=== PATIENT | female | born 1965 | race Caucasian/White ===

== ENCOUNTER → 2018-10-15 16:07 | Outpatient (CLI) | payer BC, SELFPAY ==
--- NOTE | 2018-10-15 16:11 | BI_ITS ---
MAMMOGRAPHY - BILATERAL SCREENING REASON FOR EXAM: Female, 53 years old. Routine annual screening examination. PERTINENT HISTORY: Grandmother with breast cancer. TECHNIQUE: Digital bilateral breast myke (3D mammographic acquisition) in the CC and MLO projections. 2-D mediolateral oblique (MLO) and craniocaudad (CC) views of both breasts were obtained. CAD: Full Field Digital Mammography with Computer Added Detection was performed. COMPARISON: Comparison is made with prior study dated October 01, 2017 and August 25, 2016. FINDINGS: Breast Composition: The breasts are heterogeneously dense, which may obscure small masses. There are no dominant masses or suspicious calcifications. Stable benign-appearing bilateral axillary lymph nodes. No other significant abnormalities are identified. There has been no significant change since the prior study. BI/SCREENING MAMM (CAD), BILAT IMPRESSION: Stable bilateral screening mammogram. Yearly follow-up mammogram recommended. (A) ASSESSMENT CATEGORY: BIRADS Category 2: Benign. A letter regarding these results will be sent to the patient by the facility within 30 days. Approximately 10% of breast cancers are not detected by mammography. A normal mammogram should not delay biopsy of a clinically suspicious abnormality. [id number] Electronically Signed: Pavan Gonzales MD at 12:45 EST Tel [phone], Service support ,
== END ==
PROVIDERS: Family Provider Family Medicine; PCP Family Medicine; Referring Provider Obstetrics & Gynecology; Visit Provider Obstetrics & Gynecology
DX: Z12.31 Encounter for screening mammogram for malignant neoplasm of breast (principal)
CPT/HCPCS: 77063; 77067

== ENCOUNTER → 2019-10-13 13:43 | Outpatient (CLI) | payer BC, SELFPAY ==
[2019-10-19 10:02] LABS: HPV Reflexed? NOT INDICATED
== END ==
PROVIDERS: Visit Provider Obstetrics & Gynecology
DX: Z12.4 Encounter for screening for malignant neoplasm of cervix (principal)
CPT/HCPCS: 88175; G0145

== ENCOUNTER → 2019-10-22 13:09 | Outpatient (CLI) | payer BC, SELFPAY ==
--- NOTE | 2019-10-22 13:17 | BI_ITS ---
MAMMOGRAPHY - BILATERAL SCREENING REASON FOR EXAM: Female, 54 years old. Routine annual screening examination. PERTINENT HISTORY: Grandmother with breast cancer. TECHNIQUE: Digital bilateral breast bre (3D mammographic acquisition) in the CC and MLO projections. 2-D mediolateral oblique (MLO) and craniocaudad (CC) views of both breasts were obtained. CAD: Full Field Digital Mammography with Computer Added Detection was performed. COMPARISON: Comparison is made with prior study dated October 15, 2018 and October 01, 2017. FINDINGS: Breast Composition: The breasts are heterogeneously dense, which may obscure small masses. There are no dominant masses or suspicious calcifications. Stable bilateral benign appearing axillary lymph nodes. No other significant abnormalities are identified. There has been no significant change since the prior study. BI/SCREEN MAMM (CAD) W/BRE BILAT IMPRESSION: Stable bilateral screening mammogram. Yearly follow-up mammogram recommended. (A) ASSESSMENT CATEGORY: BIRADS Category 2: Benign. A letter regarding these results will be sent to the patient by the facility within 30 days. Approximately 10% of breast cancers are not detected by mammography. A normal mammogram should not delay biopsy of a clinically suspicious abnormality. [id number] Electronically Signed: Pavan Gonzales, at 15:20 EST , Service support ,
== END ==
PROVIDERS: Family Provider Student in an Organized Health Care Education/Training Program; PCP Student in an Organized Health Care Education/Training Program; Referring Provider Obstetrics & Gynecology; Visit Provider Obstetrics & Gynecology
DX: Z12.31 Encounter for screening mammogram for malignant neoplasm of breast (principal)
CPT/HCPCS: 77063; 77067

== ENCOUNTER → 2020-11-07 12:15 | Outpatient (CLI) | payer OTHER, SELFPAY ==
--- NOTE | 2020-11-07 12:18 | BI_ITS ---
MAMMOGRAPHY - BILATERAL SCREENING REASON FOR EXAM: Female, 55 years old. Routine annual screening examination. PERTINENT HISTORY: Grandmother with breast cancer. TECHNIQUE: Digital bilateral breast bre (3D mammographic acquisition) in the CC and MLO projections. 2-D mediolateral oblique (MLO) and craniocaudad (CC) views of both breasts were obtained. CAD: Full Field Digital Mammography with Computer Added Detection was performed. COMPARISON: Comparison is made with prior study dated 04/21/2020 and 10/15/2018. FINDINGS: Breast Composition: The breasts are heterogeneously dense, which may obscure small masses. There are no dominant masses or suspicious calcifications. Stable benign-appearing bilateral axillary lymph nodes. No other significant abnormalities are identified. There has been no significant change since the prior study. BI/SCRN MAMM (CAD)W/BRE BILAT IMPRESSION: Stable bilateral screening mammogram. Yearly follow-up mammogram recommended. (A) ASSESSMENT CATEGORY: BIRADS Category 2: Benign. A letter regarding these results will be sent to the patient by the facility within 30 days. Approximately 10% of breast cancers are not detected by mammography. A normal mammogram should not delay biopsy of a clinically suspicious abnormality. [id number] Electronically Signed: Pavan Gonzales MD at 13:02 EST , Service support ,
== END ==
PROVIDERS: PCP Student in an Organized Health Care Education/Training Program; Referring Provider Obstetrics & Gynecology; Visit Provider Obstetrics & Gynecology
DX: Z12.31 Encounter for screening mammogram for malignant neoplasm of breast (principal)
CPT/HCPCS: 77063; 77067

== ENCOUNTER 2021-11-15 13:19 | Outpatient (CLI) | payer OTHER, SELFPAY ==
--- NOTE | 2021-11-15 13:25 | BI_ITS ---
MAMMOGRAPHY - BILATERAL SCREENING REASON FOR EXAM: Female, 56 years old. Routine annual screening examination. PERTINENT HISTORY: Grandmother with breast cancer. TECHNIQUE: Digital bilateral breast bre (3D mammographic acquisition) in the CC and MLO projections. 2-D mediolateral oblique (MLO) and craniocaudad (CC) views of both breasts were obtained. CAD: Full Field Digital Mammography with Computer Added Detection was performed. COMPARISON: Comparison is made with prior study dated 06/07/2021 and 10/22/2019. FINDINGS: Breast Composition: The breasts are heterogeneously dense, which may obscure small masses. Stable amorphous calcifications within a small nodular density in the retroareolar region of the right breast. The patient should be recalled for magnification spot views. This most likely represent a calcifying fibroadenoma. Stable small benign-appearing bilateral axillary lymph nodes. No other significant abnormalities are identified. BI/SCRN MAMM (CAD)W/BRE BILAT IMPRESSION: Stable amorphous calcifications in the retroareolar region of the right breast as described. The patient will be recalled for additional views including magnification spot views. Recall Side: Right Breast ASSESSMENT CATEGORY: BIRADS Category 0: Incomplete. Need additional imaging evaluation. A letter regarding these results will be sent to the patient by the facility within 30 days. Approximately 10% of breast cancers are not detected by mammography. A normal mammogram should not delay biopsy of a clinically suspicious abnormality. [id number] Electronically Signed: Pavan Gonzales MD at 8:16 EST ,
== END 2021-11-15 23:59 | disposition home or self-care (01) ==
PROVIDERS: PCP Student in an Organized Health Care Education/Training Program; Referring Provider Obstetrics & Gynecology; Visit Provider Obstetrics & Gynecology
DX: Z12.31 Encounter for screening mammogram for malignant neoplasm of breast (principal)
CPT/HCPCS: 77063; 77067

== ENCOUNTER 2021-11-19 14:18 | Outpatient (CLI) | payer OTHER, SELFPAY ==
--- NOTE | 2021-11-19 14:30 | BI_ITS ---
MAMMOGRAPHY - UNILATERAL DIAGNOSTIC: RIGHT BREAST REASON FOR EXAM: Female, 56 years old. Abnormal screening mammogram. PERTINENT HISTORY: Grandmother with breast cancer. TECHNIQUE: Compression magnification images of the right breast in the mediolateral oblique and craniocaudad projections were obtained. CAD: Full Field Digital Mammography with Computer Added Detection was performed. COMPARISON: Comparison is made with prior study dated 11/15/2021. FINDINGS: Breast Composition: The breasts are heterogeneously dense, which may obscure small masses. The microcalcifications in the retroareolar region of the right breast were examined. Biopsy is recommended. No other significant abnormalities are identified. BI/DIAG MAMM W/CAD, UNILAT IMPRESSION: The microcalcifications in the retroareolar region of the right breast were examined. Biopsy is recommended. ASSESSMENT CATEGORY: BIRADS Category 4: Suspicious - Biopsy Should Be Considered. A letter regarding these results will be sent to the patient by the facility within 30 days. Approximately 10% of breast cancers are not detected by mammography. A normal mammogram should not delay biopsy of a clinically suspicious abnormality. Electronically Signed: Pavan Gonzales MD at 15:08 [facility] ,
== END 2021-11-19 23:59 | disposition home or self-care (01) ==
LOC: OPBI 14:27
PROVIDERS: PCP Student in an Organized Health Care Education/Training Program; Referring Provider Obstetrics & Gynecology; Visit Provider Obstetrics & Gynecology
DX: R92.0 Mammographic microcalcification found on diagnostic imaging of breast (principal)
CPT/HCPCS: 77065

== ENCOUNTER 2021-11-28 10:28 | Outpatient (CLI) | payer OTHER, SELFPAY ==
--- NOTE | 2021-11-28 | IMM_PTH ---
PATIENT: CHANCE DASILVA LOC: [facility] U#:[id number] AGE/SX: 56/F ROOM: RE11/28/[address]: Dr. Ayden Manzanares MD : 1965 BED: DIS: 11/28/2021 SPEC #: [id number] RECD: 11/29/21 13:27 STATUS: MARCELA REQ #: [id number] DAVE: 11/28/21 00:[address]: Ayden Manzanares DEPT: IMMUNOHISTOCHEMISTRY RECD BY: Hannah Mckeon ENTERED: 11/29/21 13:28 SP TYPE: IMMUNO OTHR DR: Dr. Zuhair Tapia DO Tissues: Right breast, NOS Procedures: Calponin-1(initial) CK8 (add) E-CAD (add) P40 (add) PHYSICIAN & INSTITUTION [place] [address] SPECIMEN INFORMATION: Tissue Source: Right breast Clinical Info: Right breast retroareolar microcalcifications Specimen Number: [id number] #1 CPT code: 79922, 68091 x3 METHODOLOGY: Deparaffinized sections of prefer/formalin-fixed tissue or PAP/DQ stained slides are incubated with monoclonal/polyclonal antibodies/oligonucleotide probes. Localization is made via biotin free immunoperoxidase method. Appropriate controls are performed and reacted as expected. Results on target cell population are indicated in the following table: RESULTS: ANTIBODY / CLONE RESULT Block 1 P40 (BC28) positive Calponin-1 (FC918K) positive E-Cad (ECH-6) negative CK8 ([id number]) positive These tests were developed and their performance characteristics determined by [facility]. They may not have been cleared or approved by the U.S. Food and Drug Administration. The FDA has determined that such clearance or approval is not necessary. The above immunohistochemical/dualISH markers are ordered and reviewed by the Pathologist. INTERPRETATION: Right breast, stereotactic core biopsy: Consistent with focal atypical lobular hyperplasia. AM:antonio 11/30/2021
--- NOTE | 2021-11-28 10:57 | HP.PCM_ITS ---
History and Physical Date of Admission: 11/28/21 Intake Visit Reasons: BIRADS 4 RIGHT BREAST Chief Complaint: BIRADS 4 Right Beast Retoucher Required: No Is patient in pain?: No Allergies No Known Allergies Allergy (Verified 11/23/21 08:40) Medications ascorbate calcium (vitamin C) 500 mg tablet 500 mg PO DAILY 11/23/21 [History Co nfirmed 11/23/21] atorvastatin 10 mg tablet 10 mg PO DAILY 11/23/21 [History Confirmed 11/23/21] calcium carbonate 500 mg calcium (1,250 mg) tablet 500 mg PO DAILY 11/23/21 [History Confirmed 11/23/21] estradiol 1 mg tablet 1 mg PO DAILY 11/23/21 [History Confirmed 11/23/21] multivitamin 1 tab PO DAILY 11/23/21 [History Confirmed 11/23/21] omega-3 fatty acids 1,000 mg capsule 1,000 mg PO DAILY 11/23/21 [History Confirmed 11/23/21] progesterone micronized 200 mg capsule 200 mg PO QHS 11/23/21 [History Confirmed 11/23/21] [facility] Medical History (Updated 11/23/21 @ 08:[address] Ayden Manzanares MD) Anxiety Depression Hypertension Surgical History (Updated 11/23/21 @ 08:35 by Friday) History of delivery History of D&C Family History (Updated 11/23/21 @ 08:37 by Friday) Grandmother Breast cancer Pt is adopted and does not know a lot of her family history. Maternal grandmother had bilateral breast CA with bilateral mastectomy at age 34 Father Heart disease Hypertension Myocardial infarction Father at a young age from CA Social History (Updated 11/23/21 @ 08:38 by Friday) adopted: Yes Smoking Status: Never smoker alcohol intake: current substance use type: does not use HPI HPI HPI: CHANCE DASILVA, is a 56 F who presents to the office today for surgical consultation regarding an abnormal mammogram. The patient is referred by Dr. Zuhair Tapia and Dr. Lenin Mclaughlin and copies of my surgical consult will be returned to them. On November 15, 2021 the patient had routine screening mammography. The patient was felt to have stable amorphous calcifications in the retroareolar area of the right breast. BI-RADS Category 0. Diagnostic right unilateral mammograms were obtained on November 19, 2021. The microcalcifications in the retroareolar region of the right breast were examined. Biopsy is recommended BI-RADS Category 4. 56-year-old female. A0. Menarche at age 10. First child born she was 26. No previous breast biopsies. She has been on estrogen replacement therapy for the past 3 years. She is adopted so she does not know her perfect past medical history. May 2021 she experienced Covid-19. She did not require hospitalization. She did not require monoclonal antibody. She is not been vaccinated and currently is not interested in doing so. ROS General General: Yes fatigue; No weight change, appetite, colon cancer, breast cancer or weakness HEENT HEENT: No difficulty swallowing, eye injury, eye surgery, swollen glands or hoarseness Endo Endocrine: No thyroid disease, diabetes mellitus, thyroid cancer, Hair loss, heat intolerance or cold intolerance Skin Skin: No rash or changing moles Musc Musculoskeletal: Yes back problems; No arthritis, rheumatoid arthritis, gout or joint pain Cardio Cardiovascular: Yes high blood pressure; No murmur, pacemaker, heart disease, atrial fibrillation, heart attack, heart stent, palpitations, shortness of breat with exertion or chest pain Psych Psychiatric: Yes depression and anxiety; No hearing voices Resp Respiratory: No shortness of breath, No sleep apnea, No cough, No COPD, No asthma, No emphysema and No wheezing Gastro Gastrointestinal: No abdominal pain, No nausea or vomiting, No diarrhea, No constipation, No blood in stool, No acid reflux, No hemorrhoids, No ulcers, No gallbladder problem and No black,tarry stools Pierre Hematologic: No blood thinners, No blood disorders, No bleeding, No anemia and No blood clots Neuro Neurologic: No system reviewed and no additional complaints, except as documented, No as per HPI, No abnormal gait, No abnormal hearing, No abnormal movements, No abnormal speech, No behavioral changes, No burning sensations, No confusion, No convulsions, No disequilibrium, No dizziness, No localized weakness, No frequent falls, No headache(s), No lack of coordination, No loss of vision, No memory loss, No numbness, No other visual disturbances, No radicular pain, No restless legs, No sensory deficit, No syncope, No tingling, No tremor(s), No weakness and No other Exam Chest Other: Right breast: No focal mass. No nipple discharge. No axillary clavicular adenopathy Left breast: No focal mass, no nipple discharge. No axillary or clavicular adenopathy Assessment and Plan Assessment and Plan (1) Abnormal mammogram of right breast: Status: Acute Plan - Dr. Ayden Manzanares MD: I have personally reviewed the patient's mammogram and the BI-RADS Category 4 report. The calcifications appear to be rather coarse. Not clear that they have significantly changed from previously. I recommend to her stereotactic needle core biopsy. I discussed the technique, benefit, risk and alternatives. She is aware that a marking clip will be placed. She has had an opportunity to ask no questions answered. We will schedule and expedite her care. I appreciate the opportunity of assisting with her surgical management. Copy: Dr. Lenin Manzanares M.D., F.A.C.S. I have re-examined the patient. There are no clinical changes since date of exam.
--- NOTE | 2021-11-28 11:00 | BRBX_PTH ---
PATIENT: CHANCE DASILVA LOC: [facility] U#:[id number] AGE/SX: 56/F ROOM: RE11/28/[address]: Dr. Ayden Manzanares MD : 1965 BED: DIS: 11/28/2021 SPEC #: [id number] RECD: 11/28/21 11:41 STATUS: MARCELA REDa #: [id number] DAVE: 11/28/21 11:[address]: Ayden Manzanares DEPT: SURGICAL PATHOLOGY RECD BY: Kendal Sue ENTERED: 11/28/21 12:31 SP TYPE: BREAST BX OTHR DR: Dr. Zuhair Tapia DO Tissues: Right breast, NOS Procedures: Surgery Specimen Level IV HEADER OPERATION: Right breast stereotactic biopsy PRE-OP DIAGNOSIS: Right breast retroareolar microcalcifications TISSUE SUBMITTED: Right breast core tissue ISCHEMIC TIME: 1 minute FIXATION TIME: 8.5 hours MICROSCOPIC DIAGNOSIS Right breast, needle core biopsy: Fibrocystic change with associated microcalcifications. Focal atypical lobular hyperplasia. Focal intraductal hyperplasia without atypia. See comment. AM:antonio 11/29/2021 COMMENT Immunohistochemistry ([id number]) supports the above diagnosis. MICROSCOPIC DESCRIPTION Slides are reviewed. GROSS DESCRIPTION Received in fixative is one container labeled with the patient's name and designated right breast. The specimen consists of multiple irregular fragments of mckay-yellow soft tissue that in aggregate measure 4 x 3 x 0.2 cm. The specimen is totally submitted in two cassettes. / AM:antonio 11/28/2021 TC:3 CPT: 33889
--- NOTE | 2021-11-28 11:31 | PCM.OPRPT ---
Problems Associated Problem List Diagnoses (1) Abnormal mammogram of right breast: Report of Operation Date of Procedure: 11/28/21 Pre-Operative Diagnosis: Clustered microcalcifications outer mid right breast Post-Operative Diagnosis: Same Surgery/Procedure Performed:: Stereotactic needle core biopsy outer mid right breast Description of Surgical Findings:: Timeout informed consent was obtained. 56-year-old female states they are Sterital unit placed prone the table. The right breast was placed in a lateral medial view. The microcalcifications were rapidly identified. Stereotactic images were obtained. Digital information was obtained on a single target site. 1% lidocaine was used as a local anesthetic. A total of 16 cc was used. A small stab incision was created. An 8 gauge resolved needle was advanced to prefire depth. Prefire films were obtained demonstrating adequate localization. The device was fired. 6 cores were obtained. Specimen mammograms were obtained suggesting that the microcalcifications in question were scattered throughout the specimen. A dumbbell marking clip was left at 12 o'clock position. She was released from the device. Pressure was held for hemostasis. Steri-Strips Telfa tape dressing applied. She was given activity and wound care instructions. The specimens were immediately transferred to formalin for analysis. Final pathology pending. Clinically the area appeared to be consistent with a degenerating fibroadenoma. Specimen core samples. Drains none. Blood loss minimal. Ayden Manzanares M.D., F.A.C.S. Surgeon: Ayden Manzanares Type of Anesthesia: Local
== END 2021-11-28 23:59 | disposition home or self-care (01) ==
LOC: BIRAD 10:29
PROVIDERS: PCP Student in an Organized Health Care Education/Training Program; Visit Provider Surgery
DX: N60.11 Diffuse cystic mastopathy of right breast (principal); N60.91 Unspecified benign mammary dysplasia of right breast; I10 Essential (primary) hypertension; F41.9 Anxiety disorder, unspecified; F32.A Depression, unspecified; Z79.899 Other long term (current) drug therapy
CPT/HCPCS: 19081; 88305; 88341; 88342; J7050

== ENCOUNTER 2021-12-20 11:55 | Outpatient (CLI) | payer OTHER, SELFPAY ==
[2021-12-28 10:32] LABS: HPV Reflexed? NOT INDICATED
== END 2021-12-20 23:59 | disposition home or self-care (01) ==
LOC: LABSPEC 12:11
PROVIDERS: PCP Student in an Organized Health Care Education/Training Program; Visit Provider Obstetrics & Gynecology
DX: Z12.4 Encounter for screening for malignant neoplasm of cervix (principal)
CPT/HCPCS: 88175; G0145

== ENCOUNTER → 2023-01-14 | Outpatient (CLI) | payer OTHER, SELFPAY ==
--- NOTE | 2023-01-14 09:14 | BI_ITS ---
MAMMOGRAPHY - BILATERAL SCREENING 3-D TOMOSYNTHESIS REASON FOR EXAM: Female, 57 years old. SCREENING PERTINENT HISTORY: No significant family history. TECHNIQUE: 2-D mammograms and 3-D Tomosynthesis of the breast (s) were performed. CAD was performed. COMPARISON: 11/15/2021 FINDINGS: The breast composition is composed of scattered fibroglandular density. Scattered benign calcifications are seen. No dense spiculated masses or suspicious microcalcifications are identified. No architectural distortion is identified. There is no skin thickening or retraction. There is a more conspicuous 1 cm nodule in the central lateral right breast when compared to the previous study and further evaluation with ultrasound is recommended. Biopsy clip noted from removal of previous microcalcifications in the retroareolar region. Left breast is stable and unchanged. BI/SCRN MAMM (CAD)W/BRE BILAT IMPRESSION: More conspicuous well-defined 1 cm nodule in the central lateral right breast, further evaluation with ultrasound recommended ASSESSMENT CATEGORY: BIRADS Category 0: Incomplete. Need additional imaging evaluation as above. A letter regarding these results will be sent to the patient by the facility within 30 days. FOLLOW UP RECOMMENDATION: Ultrasound Recommended. (I) Approximately 10% of breast cancers are not detected by mammography. A normal mammogram should not delay biopsy of a clinically suspicious abnormality. Electronically Signed: Jovanni English MD at 10:05 EDT ,
== END | disposition home or self-care (01) ==
LOC: OPBI 09:13
PROVIDERS: PCP Student in an Organized Health Care Education/Training Program; Referring Provider Nurse Practitioner Women's Health; Visit Provider Nurse Practitioner Women's Health
DX: Z12.31 Encounter for screening mammogram for malignant neoplasm of breast (principal)
CPT/HCPCS: 77063; 77067

== ENCOUNTER → 2023-01-20 | Outpatient (CLI) | payer OTHER, SELFPAY ==
--- NOTE | 2023-01-20 15:00 | US_ITS ---
STUDY: ULTRASOUND BREAST - RIGHT REASON FOR EXAM: Female, 57 years old. Abnormal screening mammogram. TECHNIQUE: Axial and longitudinal images of the RIGHT breast were performed with a high resolution ultrasound transducer. # OF IMAGES: 10 COMPARISON: Comparison is made with prior mammogram dated January 14, 2023. FINDINGS: RIGHT Breast: The mammographic abnormality corresponds to a 1.1 cm x 0.8cm x 0.7 cm cyst at the 8:00 position of the breast at 4 cm from the nipple. US/Breast Limited Unilateral IMPRESSION: The mammographic abnormality corresponds to 1.1 cm x 0.8 cm x 0.7 cm cyst at 8:00 position of the breast at 4 cm from the nipple. ASSESSMENT CATEGORY: BIRADS Category 2: Benign. A letter regarding these results will be sent to the patient by the facility within 30 days. Electronically Signed: Pavan Gonzales MD at 15:29 EDT ,
== END | disposition home or self-care (01) ==
PROVIDERS: PCP Student in an Organized Health Care Education/Training Program; Referring Provider Nurse Practitioner Women's Health; Visit Provider Nurse Practitioner Women's Health
DX: N60.01 Solitary cyst of right breast (principal)
CPT/HCPCS: 76642

== ENCOUNTER → 2024-02-25 | Outpatient (CLI) | payer OTHER, SELFPAY ==
[2024-03-03 08:11] LABS: HPV APTIMA, High Risk Negative (Negative)
== END | disposition home or self-care (01) ==
LOC: LABSPEC 11:57
PROVIDERS: PCP Student in an Organized Health Care Education/Training Program; Referring Provider Nurse Practitioner Women's Health; Visit Provider Nurse Practitioner Women's Health
DX: Z12.4 Encounter for screening for malignant neoplasm of cervix (principal)
CPT/HCPCS: 87624; 88175; G0145

== ENCOUNTER → 2024-03-11 | Outpatient (CLI) | payer OTHER, SELFPAY ==
--- NOTE | 2024-03-11 14:54 | US_ITS ---
STUDY: ULTRASOUND OF THE FEMALE PELVIS - COMPLETE REASON FOR EXAM: Female, 58 years old. Post menopausal spotting LMP: 2018. TECHNIQUE: Transabdominal and Transvaginal TECHNICAL QUALITY: Adequate. COMPARISON: None. FINDINGS: The uterus is anteverted and is in a midline position. The uterus measures 7.2 cm x 3.9 cm x 3 cm. There is a Nabothian cyst of the cervix. The endometrium measures 2.1 mm in thickness, and is hyperechoic. There is no demonstrated endometrial mass. There is a 1.6 cm x 1.6 cm x 1.5 cm uterine fibroid. I.U.D. - The patient does not have an I.U.D. The right ovary is visualized. The right ovary measures 1.5 cm x 1.3 cm x 1.9 cm. There is no right ovarian cyst or ovarian mass. There is no visualized right adnexal mass or complex lesion. There is normal arterial and normal venous vascularity. The left ovary is visualized. The left ovary measures 4.3 cm x 2.8 cm x 3.1 cm. There is a 4.1 cm x 2.8 cm x 2.8 cm cyst. There is no visualized left adnexal mass or complex lesion. There is normal arterial and normal venous vascularity. There is no fluid in the cul-de-sac. The pre void volume of the bladder was 17 ml. US/Pelvic w/ Transvaginal IMPRESSION: Small uterine fibroid. 4.1 cm x 2.8 cm x 2.8 cm left ovarian cyst. Electronically Signed: Pavan Gonzales MD at 15:37 EDT ,
== END | disposition home or self-care (01) ==
LOC: US 14:52
PROVIDERS: PCP Student in an Organized Health Care Education/Training Program; Referring Provider Nurse Practitioner Women's Health; Visit Provider Nurse Practitioner Women's Health
DX: N95.0 Postmenopausal bleeding (principal)
CPT/HCPCS: 76830; 76856

== ENCOUNTER → 2024-03-19 | Outpatient (CLI) | payer OTHER, SELFPAY ==
[2024-03-20 04:08] LABS: Cancer Antigen 125 10.9 U/mL (0.0-38.1); Carcinoembryonic Antigen 1.7 ng/mL (0.0-4.7)
== END | disposition home or self-care (01) ==
LOC: PAVLAB 09:15
PROVIDERS: PCP Student in an Organized Health Care Education/Training Program; Visit Provider Nurse Practitioner Women's Health
DX: N95.0 Postmenopausal bleeding (principal)
CPT/HCPCS: 36415; 82378; 86304

== ENCOUNTER → 2024-04-13 | Outpatient (CLI) | payer OTHER, SELFPAY ==
--- NOTE | 2024-04-13 08:57 | US_ITS ---
EXAM: US PELVIS TRANSABDOMINAL AND TRANSVAGINAL, COMPLETE CLINICAL INDICATION: ovarian cyst TECHNIQUE: Transabdominal and transvaginal pelvic ultrasound was performed with grayscale and color Doppler imaging. Transvaginal imaging was used for better evaluation of the endometrium and adnexa. COMPARISON: 03/11/2024. FINDINGS: UTERUS/CERVIX: Scarring in the lower uterine segment consistent with changes. Anteverted. The uterus measures 7.3 x 5.0 x 3.1 cm. The endometrial stripe measures 0.3 cm in thickness. No fibroid is identified at this time. RIGHT OVARY: No significant abnormality. Blood flow is present in the right ovary. The right ovary measures 2.3 x 1.5 x 1.5 cm. LEFT OVARY: 4.2 x 3.0 x 2.7 cm left ovarian simple cyst is similar to the prior examination. Blood flow is present in the left ovary. The left ovary measures 4.5 x 3.4 x 3.1 cm. FREE FLUID: No free fluid is present. BLADDER: The urinary bladder appears normal. US/Pelvic w/ Transvaginal IMPRESSION: 4.2 x 3.0 x 2.7 cm left ovarian simple cyst is similar to the prior examination. SRU Consensus Conference guidelines (Vidla, et. al. Radiology 2019;293:359-371) recommend follow-up pelvic ultrasound in 1 year or at 2 years from initial study (whichever is later). Electronically Signed: Naresh Allen DO at 0:02 EDT ,
--- NOTE | 2024-04-13 08:57 | BI_ITS ---
MAMMOGRAPHY - BILATERAL SCREENING REASON FOR EXAM: Female, 58 years old. Routine annual screening examination. PERTINENT HISTORY: Grandmother with breast cancer. Prior right stereotactic and ultrasound-guided breast biopsies. TECHNIQUE: Digital bilateral breast myke (3D mammographic acquisition) in the CC and MLO projections. 2-D mediolateral oblique (MLO) and craniocaudad (CC) views of both breasts were obtained. CAD: Full Field Digital Mammography with Computer Added Detection was performed. COMPARISON: Comparison is made with prior study dated January 14, 2023 and June 19, 2022. FINDINGS: Breast Composition: The breasts are heterogeneously dense, which may obscure small masses. There are no dominant masses or suspicious calcifications. The previously seen 1 cm nodular density in the central slightly lateral aspect of the right breast has resolved. A tissue clip marker is seen in the lateral retroareolar region of the right breast. Stable bilateral fat containing axillary lymph nodes. No other significant abnormalities are identified.
== END | disposition home or self-care (01) ==
LOC: OPUS 08:52
PROVIDERS: PCP Student in an Organized Health Care Education/Training Program; Referring Provider Nurse Practitioner Women's Health; Visit Provider Nurse Practitioner Women's Health
DX: Z12.31 Encounter for screening mammogram for malignant neoplasm of breast (principal); Z80.3 Family history of malignant neoplasm of breast; N83.209 Unspecified ovarian cyst, unspecified side; N95.0 Postmenopausal bleeding
CPT/HCPCS: 76830; 76856; 77063; 77067

== ENCOUNTER 2024-05-28 08:57 | Day surgery (SDC) | payer OTHER, SELFPAY ==
[2024-05-28] VITALS (7 sets, daily range): BP systolic 101–151; BP diastolic 53–90; PULSE 74–92; RESP 12–16; TEMP 35.6–36.7; O2SAT 97–100; BMI 32.0
--- NOTE | 2024-05-28 | COLBX_PTH ---
PATIENT: CHANCE DASILVA LOC: EN U#:[id number] AGE/SX: 58/F ROOM: RE05/28/[address]: Dr. Danny Jensen MD : 1965 BED: DIS: 05/28/2024 SPEC #: [id number] RECD: 05/28/24 12:55 STATUS: MARCELA CHARISSA #: [id number] DAVE: 05/28/24 00:[address]: Danny Jensen DEPT: SURGICAL PATHOLOGY RECD BY: Gadiel Higgins ENTERED: 05/28/24 12:55 SP TYPE: COLON BX OTHR DR: Dr. Zuhair Tapia DO Tissues: COLON BIOPSY Procedures: Surgery Specimen Level IV HEADER OPERATION: Colonoscopy with biopsies PRE-OP DIAGNOSIS: Chronic diarrhea, history of colon polyps TISSUE SUBMITTED: Random colon biopsies MICROSCOPIC DIAGNOSIS Colon, random biopsy: Fragments of colonic mucosa, no pathologic diagnosis. TOM/ 05/31/2024 MICROSCOPIC DESCRIPTION Slides are reviewed. GROSS DESCRIPTION Received in fixative is one container labeled with the patient's name and designated Random colon biopsies. The specimen consists of multiple irregular fragments of light mckay soft tissue that in aggregate measure 2.0. x 0.5 x 0.1 cm. The specimen is totally submitted in one cassette. 05/28/2024 TC:4 CPT:28534
[2024-05-28] MEDS: Lactated Ringers 1,000 ML 15 ML IV (09:22)
--- NOTE | 2024-05-28 09:38 | PCM.PRE.AN2 ---
ASA Classification* ASA Classification ASA Classification: 2 Assessment & Plan Anesthesia* Anesthesia Assessment Anesthesia Assessment: Discussed sedation and/or anesthesia options, risks, benefits, and alternatives with patient/parents/legal guardian/POA. Questions invited. The patient/parents/legal guardian/POA seems to understand and agrees to proceed with anesthesia plan. Reviewed the physical assessment, medical history, allergy history and patient home medications list prior to surgery/procedure/anesthetic and documented any changes. Performed airway and anesthesia risk assessments. Anesthesia Type Anesthesia Type: MAC History Source History Obtained from:: Patient and Chart Anesthesia Focused Assessment* Temperature: 96.0 F Pulse Rate: 92 Blood Pressure: 151/90 Respiratory Rate: 12 Pulse Ox: 97 Oxygen Delivery Method: Room Air Airway Assessment Mouth opens: >3 cm Mallampati Score: II Teeth Condition: Caps/Crowns (Crowns on #7 and 10. They are tight.) Neck Range of motion (ROM): Limited ROM (Slight decreased extension) Focused Labs Anesthesia Preop lab: CBC CHEMISTRY COAG Pre-Assessment Diagnosis/Proposed Procedure Planned Operative Procedure(s): CSCOPE Anesthesia History Anesthesia History - barrel turner: Anesthesia History - barrel turner Hx Hospitalization No 05/25/24 10:20 Any Problems With Anesthesia No 05/25/24 10:20 Cholinesterase deficiency No 05/25/24 10:20 You/Your Family Experience No 05/25/24 10:20 fever (hyperthermia) with Relationship Recent Exposure to Contagious No 05/28/24 09:10 Disease Does patient have nerve No 05/25/24 10:20 stimulator Patient instructed to have device shut off --Does patient have Pacemaker No 05/28/24 09:10 or ICD? When Was Last Pacemaker Check QUESTION #4 FULL TEXT: You/Your Family Experience fever (hyperthermia) with Anesthesia Last Oral Intake Last Oral intake: Last Oral Intake NPO since 22:00 05/28/24 09:10 Meds taken in AM with sips of No 05/28/24 09:10 water? Meds patient instructed to take am of surgery PONV PONV - barrel turner: PONV - barrel turner Female Yes 05/25/24 10:20 HX of Motion Sickness No 05/25/24 10:20 HX of N/V After Surgery Yes 05/25/24 10:20 Non-Smoker Yes 05/25/24 10:20 Duration of Surgery greater No 05/25/24 10:20 than 60 minutes Number of Risk Factors 3 05/25/24 10:20 PONV Score Moderate Risk 05/25/24 10:20 Height & Weight Height & Weight: Anesthesia: Height & Weight Height 5 ft 6 in 05/28/24 09:10 Weight: 90 kg 05/28/24 09:10 Body Mass Index (BMI) 32.0 05/28/24 09:10 Respiratory Assessment Respiratory Assessment - barrel turner: Respiratory Tract Infection Hx - barrel turner Hx Respiratory Tract Infection No 05/25/24 10:20 STOP Sleep Apnea STOP Sleep Apnea - barrel turner: STOP Sleep Apnea - barrel turner Hx Hypertension No 05/25/24 10:20 Hx Sleep Apnea No 05/25/24 10:20 CPAP BIPAP Do you snore loudly (louder No 05/25/24 10:20 than talking or can be heard Do you often feel tired/ No 05/25/24 10:20 fatigued/ sleepy during daytime? Has anyone observed you stop No 05/25/24 10:20 breathing during sleep? STOP Results Negative 05/25/24 10:20 QUESTION #5 FULL TEXT : Do you snore loudly (louder than talking or can be heard through closed doors)? 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 Specify any problems Hx of Preganancy in last 3 N/A 05/25/24 10:20 Months Nurse Filling Out Transfusion NBUCHER 05/25/24 10:20 & Questions: Date: 05/25/24 05/25/24 10:20 Time: 10:21 05/25/24 10:20 Patient unable to answer at this time (ie. confused, unrespo /Reproduction History /Reproductive History - barrel turner: /Reproductive Hx- barrel turner Hx Now No 05/25/24 10:20 Gestational Age (in weeks): EDC: Hx Hx Para Hx Section SAB No 05/25/24 10:20 Active Medications Active Medications: Current Medications Generic Name Dose Route Start Last Admin Trade Name Freq PRN Reason Stop Dose Admin Lactated Ringer's 1,000 mls @ 15 mls/hr 05/28/24 09:00 05/28/24 09:22 IV 15 mls/hr .Q48H SUSAN Administration PFSH Medical History (Updated 05/25/24 @ 10:24 by Loulou Archibald) High cholesterol Excessive bleeding Restless legs History of IBS Gastric reflux Non-smoker Leg cramps History of abnormal cervical Pap smear Abnormal mammogram of right breast Depression Anxiety Hypertension Home Medications ?Medication ?Instructions ?Recorded ?Last Taken ?Type atorvastatin 10 mg tablet 10 mg PO DAILY 11/23/21 05/27/24 History calcium carbonate 500 mg PO DAILY 11/23/21 05/27/24 History multivitamin 1 tab PO DAILY 11/23/21 05/26/24 History omega-3 fatty acids 1,000 mg 1,000 mg PO DAILY 11/23/21 05/26/24 History capsule estradiol 0.01% (0.1 mg/gram) See Rx Instructions vaginal 03/25/24 Unknown Rx vaginal cream .COMPLEX #42.5 grams clobetasol 0.05 % topical ointment 1 applic topical PRN PRN rash 05/25/24 Unknown History lactobacillus combination no.4 3 3,000 mmu cells PO DAILY 05/25/24 05/26/24 History billion cell capsule (Probiotic) omeprazole 20 mg capsule,delayed 20 mg PO DAILY 05/25/24 05/25/24 History release sertraline 50 mg tablet (Zoloft) 50 mg PO DAILY 05/25/24 Unknown History Allergy/AdvReac Type Severity Reaction Status Date / Time No Known Allergies Allergy Verified 05/28/24 09:08 Family History Grandmother Breast cancer Pt is adopted and does not know a lot of her family history. Maternal grandmother had bilateral breast CA with bilateral mastectomy at age 34 Father Heart disease Hypertension Myocardial infarction Father at a young age from [place] Surgical History (Updated 05/25/24 @ 10:24 by Loulou Archibald) History of colonoscopy History of oral surgery History of D&C History of delivery Social History adopted: Yes household members: spouse current occupational status: employed current occupation: [employer] Smoking Status: Never smoker alcohol intake: current substance use type: does not use seatbelt use: always do you feel safe at home: Yes additional social history: - Asa Review of Systems (Anesthesia) ROS Narrative System reviewed and no additional complaints, except as documented.
--- NOTE | 2024-05-28 09:55 | HP.PCM_ITS ---
History and Physical Date of Admission: 05/28/24 Intake Vital Signs 03/25/2409:56 04/12/2413:22 Height 5 ft 6 in 5 ft 6 in Weight: 203 lb BMI 32.8 BP 145/87 H Blood Pressure Location Rt brachial Position Sitting Respiration 18 Pulse 95 Pulse Source Monitor Pulse Oximetry (%) 97 Oxygen Delivery Method room air Intake Visit Reasons: CHANGE IN BOWEL HABITS Chief Complaint: change in bowel habits Is patient in pain?: No Allergies No Known Allergies Allergy (Verified 04/12/24 13:23) Medications ?Medication ?Instructions ?Recorded ?Confirmed ?Type ascorbate calcium (vitamin C) 500 500 mg PO DAILY 11/23/21 04/12/24 History mg tablet atorvastatin 10 mg tablet 10 mg PO DAILY 11/23/21 04/12/24 History calcium carbonate 500 mg PO DAILY 11/23/21 04/12/24 History multivitamin 1 tab PO DAILY 11/23/21 04/12/24 History omega-3 fatty acids 1,000 mg 1,000 mg PO DAILY 11/23/21 04/12/24 History capsule clobetasol 0.05 % topical ointment 1 applic topical .COMPLEX #30 grams 02/25/24 04/12/24 Rx estradiol 0.01% (0.1 mg/gram) See Rx Instructions vaginal 03/25/24 04/12/24 Rx vaginal cream .COMPLEX #42.5 grams Have you fallen in the past year?: No PFSH Medical History Abnormal mammogram of right breast History of abnormal cervical Pap smear Depression Anxiety Hypertension Surgical History History of D&C History of delivery Family History Grandmother Breast cancer Pt is adopted and does not know a lot of her family history. Maternal grandmother had bilateral breast CA with bilateral mastectomy at age 34Father Heart disease Hypertension Myocardial infarction Father at a young age from [place] Social History adopted: Yes household members: spouse current occupational status: employed current occupation: [employer] Smoking Status: Never smoker alcohol intake: current substance use type: does not use seatbelt use: always do you feel safe at home: Yes additional social history: - Asa HPI HPI HPI: Patient is a 58-year-old female here for diarrhea and need for colonoscopy. Patient reports her last colonoscopy was 5 years ago and a polyp was removed and she was recommended to repeat in 5 years. She also reports that she has been having loose stools intermittently for about 2 years. She is also having several bowel movements a day. She denies any abdominal pain or acid reflux or blood in the stool. ROS General General: Yes weight change; No appetite, fatigue, colon cancer, breast cancer or weakness HEENT HEENT: No difficulty swallowing, eye injury, eye surgery, swollen glands or hoarseness Endo Endocrine: No thyroid disease, diabetes mellitus, thyroid cancer, Hair loss, heat intolerance or cold intolerance Skin Skin: No rash or changing moles Musc Musculoskeletal: No back problems, arthritis, rheumatoid arthritis, gout or joint pain Cardio Cardiovascular: No murmur, pacemaker, heart disease, atrial fibrillation, high blood pressure, heart attack, heart stent, palpitations, shortness of breat with exertion or chest pain Psych Psychiatric: Yes depression and anxiety; No hearing voices Resp Respiratory: No shortness of breath, No sleep apnea, No cough, No COPD, No asthma, No emphysema and No wheezing Gastro Gastrointestinal: No abdominal pain, No nausea or vomiting, Yes diarrhea, No constipation, No blood in stool, No acid reflux, No hemorrhoids, No ulcers, No gallbladder problem and No black,tarry stools Pierre Hematologic: No blood thinners, No blood disorders, No bleeding, No anemia and No blood clots Neuro Neurologic: No system reviewed and no additional complaints, except as documented, No as per HPI, No abnormal gait, No abnormal hearing, No abnormal movements, No abnormal speech, No behavioral changes, No burning sensations, No confusion, No convulsions, No disequilibrium, No dizziness, No localized weakness, No frequent falls, No headache(s), No lack of coordination, No loss of vision, No memory loss, No numbness, No other visual disturbances, No radicular pain, No restless legs, No sensory deficit, No syncope, No tingling, No tremor(s), No weakness and No other Exam Const General: cooperative Orientation: alert and oriented x3 HENMT Head: normal to inspection Neck Neck: normal visual inspection and full ROM Chest Chest palpation & inspection: normal inspection of the chest Resp Effort & Inspection: normal respiratory effort Auscultation: clear to auscultation bilaterally Cardio Rate: regular rate Rhythm: regular rhythm GI Inspection: non-distended Palpation: soft and nontender Skin General: no rashes or lesions noted Neuro General: patient alert and patient oriented x3 Extrem General: full ROM Psych Appearance: grossly normal Mental Status: mental status grossly normal Assessment and Plan Assessment and Plan (1) Chronic diarrhea: Status: Chronic (2) History of colon polyps: Status: Acute Orders: Orders Colonoscopy Today Plan The patient has been having loose stools for 2 years. She says that it does not matter what she is eating. She says she is having several bowel movements a day. She reports no nausea or vomiting or abdominal pain. She is very stressed. I discussed performing a colonoscopy to evaluate both for her history of polyps and to do random biopsies to check for the reason for her diarrhea. I also would like her to try omeprazole until we are able to perform a colonoscopy as she may have gastritis causing this. I explained endoscopy in detail to the patient. I explained the risks including but not limited to stroke or heart attack with anesthesia, perforation of the GI tract, bleeding, infection. I explained that any of these could necessitate further emergency surgery. The patient understands and all questions were answered sufficiently. The patient wishes to proceed with procedure. Danny Jensen MD Pager: [facility] [address] [place] [address], [address] [place] [address] Office: I have examined the patient and the H&P has been reviewed. There are no clinical changes since date of exam.
--- NOTE | 2024-05-28 10:16 | OP.COLON_ITS ---
Patient Name: Namita Marrero Procedure Date: 05/28/2024 9:59 AM Date of : 1965 Age: 58 Procedure: Colonoscopy Indications: Chronic diarrhea Providers: Danny Jensen MD Referring MD: Zuhair Tapia Do Medicines: Propofol per Anesthesia Patient Profile: Last Colonoscopy: more than 3 years ago. Complications: No immediate complications. Estimated blood loss: Minimal. Procedure: Pre-Anesthesia Assessment: - Prior to the procedure, a History and Physical was performed, and patient medications and allergies were reviewed. The patient's tolerance of previous anesthesia was also reviewed. The risks and benefits of the procedure and the sedation options and risks were discussed with the patient. All questions were answered, and informed consent was obtained. Prior Anticoagulants: The patient has taken no anticoagulant or antiplatelet agents. After reviewing the risks and benefits, the patient was deemed in satisfactory condition to undergo the procedure. After I obtained informed consent, the scope was passed under direct vision. Throughout the procedure, the patient's blood pressure, pulse, and oxygen saturations were monitored continuously. The Colonoscope was introduced through the anus and advanced to the cecum, identified by appendiceal orifice and ileocecal valve. The colonoscopy was performed without difficulty. The patient tolerated the procedure well. The quality of the bowel preparation was good. The ileocecal valve, appendiceal orifice, and rectum were photographed. Scope In: 10:04:56 AM Scope Withdrawal Time 0 hours 6 minutes 5 seconds Scope Out: 10:14:32 AM Total Procedure Duration Time 0 hours 9 minutes 36 seconds Findings: The entire examined colon appeared normal on direct and retroflexion views. Biopsies for histology were taken with a cold forceps from the entire colon for evaluation of microscopic colitis. Impression: - The entire examined colon is normal on direct and retroflexion views. - Biopsies were taken with a cold forceps from the entire colon for evaluation of microscopic colitis. Recommendation: - Discharge patient to home. - Resume previous diet. - Continue present medications. - Await pathology results. - Repeat colonoscopy in 10 years for screening purposes. Procedure Code(s): --- Professional --- 17695, Colonoscopy, flexible; with biopsy, single or multiple Diagnosis Code(s): --- Professional --- K52.9, Noninfective gastroenteritis and colitis, unspecified CPT copyright 2022 [employer]. All rights reserved. The codes documented in this report are preliminary and upon pearler review may be revised to meet current compliance requirements. Danny Jensen MD 05/28/2024 10:16:09 AM This report has been signed electronically. Number of Addenda: 0 Note Initiated On: 05/28/2024 9:59 AM
--- NOTE | 2024-05-28 10:17 | OP.CCLET_ITS ---
05/28/2024 Zuhair Tapia Do Re : Colonoscopy procedure for Namita Marrero Dear Willie This procedure was performed on Tuesday, May 28, 2024. My impressions and recommendations are as follows: Impressions : - The entire examined colon is normal on direct and retroflexion views. - Biopsies were taken with a cold forceps from the entire colon for evaluation of microscopic colitis. Recommendations : - Discharge patient to home. - Resume previous diet. - Continue present medications. - Await pathology results. - Repeat colonoscopy in 10 years for screening purposes. My findings are described in the full procedure note, which is enclosed. If I can be of further assistance, please feel free to contact me at Doctor phone number(s): , Work: . Sincerely, Danny Jensen MD 05/28/2024 10:16:09 AM This report has been signed electronically.
--- NOTE | 2024-05-28 10:22 | PCM.POST.ANE ---
Anesthesia: Postop Eval I Current Vital Signs Temperature: 98.1 F Pulse Rate: 79 Blood Pressure: 101/53 Respiratory Rate: 16 Pulse Ox: 98 Oxygen Delivery Method: Room Air Assessment Airway patent: Yes Spontaneous unlabored respirations: Yes Mental status: Asleep nausea: No Vomiting: No Anesthesia Complication: No Fluid Hydration Crystalloid volume administer (ml): 500 Total IV fluid infused: 500 Progress Note Anesthesia document: Postop Eval 1 completed: Yes
--- NOTE | 2024-05-28 12:51 | PCM.POSTANE2 ---
Anesthesia Postop Eval I Sum Postop Eval Completion status Anesthesia document: Postop Eval 1 completed: Yes Anesthesia Postop Eval I Summary Anesthesia Postop Eval I Summary: Anesthesia Postop Eval I: Assessment Summary Airway patent Yes 05/28/24 10:23 [email or web address] Spontaneous unlabored Yes 05/28/24 10:23 [email or web address] respirations Mental status Asleep 05/28/24 10:23 [email or web address] nausea No 05/28/24 10:23 [email or web address] Vomiting No 05/28/24 10:23 [email or web address] Anesthesia Postop Eval I: Fluid Summary Crystalloid volume administer 500 05/28/24 10:23 [email or web address] (ml) Colloids volume administered ( ml) Blood Product volume administered (ml) Total IV fluid infused 500 05/28/24 10:23 [email or web address] Anesthesia Postop Eval I: Summary Notes Anesthesia Complication No 05/28/24 10:23 [email or web address] Anesthesia Complication Comment: Post-operative progress note Anesthesia: Postop Eval II Evaluation Mental status: Awake Pain Level: 0 nausea: No Vomiting: No
== END 2024-05-28 10:55 | disposition home or self-care (01) ==
LOC: EN 08:57 → AC 08:58
PROVIDERS: PCP Student in an Organized Health Care Education/Training Program; Referring Provider Student in an Organized Health Care Education/Training Program; Visit Provider Surgery
PROC: 0DJD8ZZ Inspection of Lower Intestinal Tract, Via Natural or Artificial Opening Endoscopic (ICD-10-PCS; CPT 45378; principal; 2024-05-28 09:55)
DX: K52.9 Noninfective gastroenteritis and colitis, unspecified (principal); Z86.010 Personal history of colon polyps; I10 Essential (primary) hypertension; Z79.899 Other long term (current) drug therapy
CPT/HCPCS: 45380; 88305; J7120; J2405

== ENCOUNTER → 2025-04-05 | Outpatient (CLI) | payer OTHER, SELFPAY ==
--- NOTE | 2025-04-05 12:29 | US_ITS ---
PROCEDURE: PELVIC (NON ) 04/05/2025 REASON FOR EXAM: OVARIAN CYST TECHNIQUE: PELVIC (NON ) COMPARISON: 04/13/24 FINDINGS: Uterus is anteverted measuring 8.4 x 4.4 x 2.7 cm. Endometrium is normal thickness at 3 mm and is hyperechoic. No suspicious uterine mass. Right ovary measures 2.4 x 1.7 x 1.2 cm Left ovary measures 4.5 x 3.1 by 2.2 cm. There is a stable simple left adnexal cyst measuring 3.6 x 2.5 x 2.5 cm. No suspicious adnexal mass, no free fluid Bladder is incompletely distended US/Pelvic (Non ) IMPRESSION: Stable simple left adnexal cyst, no specific follow-up needed since it has conchita ined stable for 1 year Sonographically normal uterus and right ovary No suspicious solid or cystic mass, no free fluid Reading Location: [id number]
--- NOTE | 2025-04-05 12:29 | US_ITS ---
PROCEDURE: PELVIC (NON ) 04/05/2025 REASON FOR EXAM: OVARIAN CYST TECHNIQUE: PELVIC (NON ) COMPARISON: 04/13/24 FINDINGS: Uterus is anteverted measuring 8.4 x 4.4 x 2.7 cm. Endometrium is normal thickness at 3 mm and is hyperechoic. No suspicious uterine mass. Right ovary measures 2.4 x 1.7 x 1.2 cm Left ovary measures 4.5 x 3.1 by 2.2 cm. There is a stable simple left adnexal cyst measuring 3.6 x 2.5 x 2.5 cm. No suspicious adnexal mass, no free fluid Bladder is incompletely distended US/Pelvic (Non ) IMPRESSION: Stable simple left adnexal cyst, no specific follow-up needed since it has conchita ined stable for 1 year Sonographically normal uterus and right ovary No suspicious solid or cystic mass, no free fluid Reading Location: [id number]
== END | disposition home or self-care (01) ==
LOC: OPUS 12:28
PROVIDERS: PCP Student in an Organized Health Care Education/Training Program; Referring Provider Nurse Practitioner Women's Health; Visit Provider Nurse Practitioner Women's Health
DX: N83.209 Unspecified ovarian cyst, unspecified side (principal)
CPT/HCPCS: 76856

== ENCOUNTER → 2025-04-19 | Outpatient (CLI) | payer OTHER, SELFPAY ==
--- NOTE | 2025-04-19 10:41 | BI_ITS ---
EXAM: SCRN MAMM (CAD)W/BRE BILAT DATE: 04/19/2025 CLINICAL HISTORY: F, Age 59 y/o , SCREENING FOR BREAST CANCER Maternal grandmother. Prior right stereotactic breast biopsy. TECHNIQUE: SCRN MAMM (CAD)W/BRE BILAT COMPARISON: Prior exam(s) dated April 13, 2024.. FINDINGS: TISSUE DENSITY: The breasts are heterogeneously dense, which may obscure small masses. Bilateral Breast Mammographic Findings: No significant masses, calcifications or other abnormalities are identified. A tissue clip marker is once again seen in the lateral retroareolar region of the right breast. No suspicious masses, areas of developing architectural distortion, or suspicious calcifications. There has been no significant interval change. BI/SCRN MAMM (CAD)W/BRE BILAT IMPRESSION: Stable examination. OVERALL FINAL ASSESSMENT BI-RADS 2: BENIGN RECOMMENDATION: Routine annual follow-up in 1 Year A letter with findings and recommendations will be mailed to the patient. Reading Location: [id number]
--- NOTE | 2025-04-19 10:41 | BI_ITS ---
EXAM: SCRN MAMM (CAD)W/BRE BILAT DATE: 04/19/2025 CLINICAL HISTORY: F, Age 59 y/o , SCREENING FOR BREAST CANCER Maternal grandmother. Prior right stereotactic breast biopsy. TECHNIQUE: SCRN MAMM (CAD)W/BRE BILAT COMPARISON: Prior exam(s) dated April 13, 2024.. FINDINGS: TISSUE DENSITY: The breasts are heterogeneously dense, which may obscure small masses. Bilateral Breast Mammographic Findings: No significant masses, calcifications or other abnormalities are identified. A tissue clip marker is once again seen in the lateral retroareolar region of the right breast. No suspicious masses, areas of developing architectural distortion, or suspicious calcifications. There has been no significant interval change. BI/SCRN MAMM (CAD)W/BRE BILAT IMPRESSION: Stable examination. OVERALL FINAL ASSESSMENT BI-RADS 2: BENIGN RECOMMENDATION: Routine annual follow-up in 1 Year A letter with findings and recommendations will be mailed to the patient. Reading Location: [id number]
== END | disposition home or self-care (01) ==
LOC: OPBI 10:40
PROVIDERS: PCP Student in an Organized Health Care Education/Training Program; Referring Provider Nurse Practitioner Women's Health; Visit Provider Nurse Practitioner Women's Health
DX: Z12.31 Encounter for screening mammogram for malignant neoplasm of breast (principal); Z80.3 Family history of malignant neoplasm of breast
CPT/HCPCS: 77063; 77067